=== PATIENT | male | born 1935 | race African-American/Black ===

== ENCOUNTER 2017-03-12 18:13 | Emergency (ER) | payer MEDICARE, MEDICAID ==
[~2017-03-12] VITALS: Ht 172.7 cm; Wt 56.7 kg
[2017-03-12 18:13] VITALS: BP 156/87
[2017-03-12 19:36] VITALS: BP 148/78
--- NOTE | 2017-03-14 00:45 | Emergency Room Report ---
History of Present Illness General Chief Complaint: General Complaint Source: Patient, Medical Record Present Illness HPI 81-year-old male presents ED for evaluation. Patient brought in by EMS for throat irritation. Patient states he feels fine. Does not know why he was brought to the hospital. [facility] Denies any pain to his throat. Denies fevers or chills. Denies cough. Denies shortness of breath. No aggravating relieving factors. Denies any other associated symptoms Allergies: Coded Allergies: No Known Allergies (Unverified , 03/12/17) Patient History Past Medical History: COPD Past Surgical History: none Pertinent Family History: none Social History: Reports: smoking, Denies: alcohol use, drug use Immunizations: UTD Reviewed Nursing Documentation: PMH: Agreed, PSxH: Agreed Nursing Documentation-PMH Past Medical History: No History, Except For Hx Hypertension: Yes Hx COPD: Yes Review of Systems All Other Systems: negative except mentioned in HPI Physical Exam Vital Signs Date Time Temp Pulse Resp B/P (MAP) Pulse Ox O2 Delivery O2 Flow Rate FiO2 03/12/17 18:13 97.2 71 16 156/87 94 Room Air Sp02 EP Interpretation: reviewed, normal General Appearance: no apparent distress, alert, GCS 15, non-toxic Head: normocephalic, atraumatic Eyes: bilateral eye normal inspection, bilateral eye PERRL ENT: hearing grossly normal, normal pharynx, no angioedema, normal voice Neck: full range of motion, supple/symm/no masses Respiratory: chest non-tender, lungs clear, normal breath sounds, speaking full sentences Cardiovascular #1: regular rate, rhythm, no edema Cardiovascular #2: 2+ carotid (R), 2+ carotid (L), 2+ radial (R), 2+ radial (L) , 2+ dorsalis pedis (R), 2+ dorsalis pedis (L) Gastrointestinal: normal bowel sounds, non tender, soft, non-distended, no guarding, no rebound Rectal: deferred Genitourinary: normal inspection, no CVA tenderness Musculoskeletal: back normal, gait/station normal, normal range of motion, non- tender Neurologic: alert, oriented x3, responsive, motor strength/tone normal, sensory intact, speech normal Psychiatric: judgement/insight normal, memory normal, mood/affect normal, no suicidal/homicidal ideation Reflexes: 3+ bicep (R), 3+ bicep (L), 3+ tricep (R), 3+ tricep (L), 3+ knee (R) , 3+ knee (L) Skin: normal color, no rash, warm/dry, well hydrated Lymphatic: no adenopathy Medical Decision Making Diagnostic Impression: Primary Impression: Encounter for generalized patient complaints ER Course 81-year-old male presents to ED for evaluation of throat irritation Differential-pharyngitis, edema, COPD Patient placed in chair. After initial history physical exam reveals an elderly male in no acute distress. Physical exam is unremarkable. There is no signs of pharyngeal erythema. No stridor. Lungs clear. Patient is insisting that he be discharged. Patient states he is too old to take the bus Taxi voucher provided for the patient Diagnoses-encounter for general as patient complaint Stable and discharged to home. Followup with PMD. Return to ED if symptoms recur or worsen Last Vital Signs Date Time Temp Pulse Resp B/P (MAP) Pulse Ox O2 Delivery O2 Flow Rate FiO2 03/12/17 19:36 97.2 65 15 148/78 98 Room Air Status: improved Disposition: HOME, SELF-CARE Condition: Stable Referrals: NOT CHOSEN [facility]/,REFERRING (PCP) BASSAM LAGUNA M.D. Mar 14, 2017 00:45
== END 2017-03-12 19:36 | disposition home or self-care (01) ==
LOC: EDBD 18:13 → EMR 18:50
DX: J39.2 Other diseases of pharynx (principal); J44.9 Chronic obstructive pulmonary disease, unspecified; I10 Essential (primary) hypertension
CPT/HCPCS: 99282

== ENCOUNTER 2018-04-08 12:54 | Emergency (ER) | payer MEDICARE, MEDICAID, OTHER ==
[~2018-04-08] VITALS: Ht 177.8 cm; Wt 63.5 kg
[2018-04-08 13:15] VITALS: BP 115/66
--- NOTE | 2018-04-08 13:56 | Emergency Room Report ---
History of Present Illness General Chief Complaint: Dyspnea/Respdistress Source: Patient, EMS Present Illness HPI Patient brought in via EMS. He called them because he ran out of his oxygen and was short of breath. He wanted them to take him to the [facility]. He denies fever, chest pain, change in his sputum. He is on chronic oxygen. H/O COPD. H/O throat cancer Denies NVD, dysuria, rashes, headache, joint pain. He gets anxious when he is short of breath. Constipation. Allergies: Coded Allergies: No Known Allergies (Unverified , 03/12/17) Patient History Past Medical History: see triage record Social History: Reports: smoking - prior Social History Narrative at home Reviewed Nursing Documentation: PMH: Agreed; PSxH: Agreed Nursing Documentation-PMH Past Medical History: No History, Except For Hx Hypertension: Yes Hx COPD: Yes Hx Cancer: Yes - throat Review of Systems All Other Systems: negative except mentioned in HPI Physical Exam Vital Signs Date Time Temp Pulse Resp B/P (MAP) Pulse Ox O2 Delivery O2 Flow Rate FiO2 04/08/18 12:59 98.1 110 18 132/65 100 Non-Rebreather 10.0 Sp02 EP Interpretation: reviewed, normal General Appearance: no apparent distress, GCS 15, thin, Chronically Ill Head: normocephalic Eyes: bilateral eye normal inspection, bilateral eye PERRL ENT: moist mucus membranes Neck: supple Respiratory: decreased breath sounds, expiration - increased phase Cardiovascular #1: regular rate, rhythm Cardiovascular #2: 2+ radial (R) Gastrointestinal: normal inspection, normal bowel sounds, non tender, no mass, non-distended, scaphoid Genitourinary: no CVA tenderness Musculoskeletal: back normal, normal range of motion, no calf tenderness Neurologic: alert, oriented x3, grossly normal Psychiatric: mood/affect normal - angry at EMS Skin: normal inspection, warm/dry Medical Decision Making Diagnostic Impression: Primary Impression: COPD (chronic obstructive pulmonary disease) Qualified Codes: J43.9 - Emphysema, unspecified ER Course Patient with dyspnea. DDX: exacerbation of COPD, stable COPD, PNA amongst others. Attempted to evaluate with EKG, CXR and labs. Planned breathing treatment. However, patient refused all treatment and evaluation stating he wanted to go to the [facility]. He stated he did not need a breathing treatment at this time but would ask for one if needed. Explained to patient risk of if leaves. He insists on going to [facility]. Discussed with [facility] ER attending. They are aware he is coming. Patient signed out AMA and sent to [place] via Taxi. Status: unchanged Disposition: AGAINST MEDICAL ADVICE Condition: Unknown Boogie Tinajero MD Apr 08, 2018 13:56
[2018-04-08 15:05] VITALS: BP 122/76
== END 2018-04-08 15:05 | disposition left against medical advice (07) ==
LOC: EDBD 12:54 → EMR 14:18
DX: J44.9 Chronic obstructive pulmonary disease, unspecified (principal); Z85.89 Personal history of malignant neoplasm of other organs and systems
CPT/HCPCS: 99283